=== PATIENT | male | born 1940 | race Caucasian/White ===

== ENCOUNTER 2016-06-03 15:59 | Emergency (ER) | payer SELFPAY ==
[~2016-06-03] VITALS: Ht 177.8 cm; Wt 85.0 kg
[~2016-06-03 15:59] MED LIST: BENA10TA48 PO; CILO50TA PO; CIPR500T4 PO; DOCU-144 PO; DOCU-159 PO; GABA300C16 PO; IBUP-1542 PO; LACT1CAP57 PO; METF-385 PO; METO5TAB58 PO; METR500T PO; PANT40TA3 PO; SENN-53 PO; TYL650R PR
[2016-06-03 16:04] VITALS: Ht 177.8 cm; Wt 85.0 kg
== END 2016-06-03 19:41 | disposition left against medical advice (07) ==
LOC: E/R 15:59
DX: Z53.21 Procedure and treatment not carried out due to patient leaving prior to being seen by health care provider (principal)
CPT/HCPCS: 82962